=== PATIENT | male | born 1995 | race Caucasian/White ===

== ENCOUNTER → 2020-12-02 | Outpatient (CLI) | payer BC ==
[2020-12-02 16:30] LABS: RED BLOOD COUNT 5.52 M/UL (4.20-5.50)
[2020-12-02 17:00] LABS: BUN/CREATININE RATIO 18 (0-10)
[2020-12-03 10:14] LABS: SARS COV-2 IGG AB Negative (Negative)
[2020-12-03 16:12] LABS: SARS COV-2 IGM AB Negative (Negative)
[2020-12-04 15:08] LABS: SARS COV-2 IGA AB Negative (Negative)
== END ==
LOC: LAB 15:57
PROVIDERS: Internal Medicine Hematology & Oncology
DX: R59.0 Localized enlarged lymph nodes (principal); Z20.822 Contact with and (suspected) exposure to COVID-19
CPT/HCPCS: 80053; 84439; 84443; 85025; 86769